=== PATIENT | male | born 1955 | race Caucasian/White ===

== ENCOUNTER 2019-02-25 09:23 | Inpatient (IN) | payer MEDICARE, OTHER ==
[~2019-02-25] VITALS: Ht 180.3 cm; Wt 120.1 kg
[~2019-02-25 09:23] MED LIST: ACETAMINOPHEN650 M5 PO; ADULT LOW DOSE81 MG PO; ALBUTEROL2.5 MG/31 INH; CEFDINIR300 MG PO; LIPITOR20 MG PO; LISINOPRIL10 MG PO; LORTAB 5 MG/5001 TA1 PO; METFORMIN HCL500 MG PO; MULTIVITAMINS PO; NEBULIZER MISCELL; PIOGLITAZONE15 MG PO; PREDNISONE 10 M10 MG PO; TOPROL XL50 MG PO
[2019-02-25 09:27] VITALS: BP 141/89
[2019-02-25] MEDS ORDERED: ELIQUIS5 MG PO (09:36)
[2019-02-25] MEDS ORDERED: CHLORTHALIDONE25 MG PO (09:39)
[2019-02-25] MEDS ORDERED: FISH OIL 1,001000 M2 PO (09:39)
[2019-02-25] MEDS ORDERED: UNICOMPLEX M TA1 TA1 PO (09:39)
[2019-02-25] MEDS ORDERED: VITAMIN D3400 UNIT PO (09:40)
[2019-02-25 09:54] LABS: ABSOLUTE EOSINOPHILS 0.2 thou/uL (0.0-0.7); ABSOLUTE LYMPHOCYTES 1.6 thou/uL (0.8-5.3); ABSOLUTE MONOCYTES 1.2 thou/uL (0.0-1.2); ABSOLUTE NEUTROPHILS 7.5 thou/uL (1.6-8.1); BASOPHILS 0.2 %; EOSINOPHILS 1.6 %; HEMATOCRIT 39.2 % (42.0-52.0); HEMOGLOBIN 13.5 gm/dL (14.0-18.0); LYMPHOCYTES 15.5 %; MCH 31.2 pg (26.0-34.0); MCHC 34.3 g/dL (28.0-37.0); MCV 90.8 fL (80.0-100.0); MONOCYTES 11.5 %; MPV 7.3 fl. (7.2-11.1); NUCLEATED RBCS 0 /100WBC; PLATELET COUNT* 326 thou/uL (150-400); POLYS 71.2 %; RBC 4.32 mil/uL (4.50-6.00); RDW-CV 15.5 % (10.5-14.5); WBC 10.6 thou/uL (4.0-11.0)
[2019-02-25 10:05] LABS: INR 1.1
[2019-02-25 10:09] LABS: ANION GAP 14 mmol/L (7-16); BUN 19 mg/dL (7-18); CALCIUM 8.5 mg/dL (8.5-10.1); CHLORIDE 99 mmol/L (98-107); CO2 25 mmol/L (21-32); CREATININE 1.3 mg/dL (0.6-1.3); GLUCOSE 138 mg/dL (70-99); POTASSIUM 3.4 mmol/L (3.5-5.1); SODIUM 138 mmol/L (136-145); TROPONIN-I LEVEL <0.06 ng/mL (<0.06)
[2019-02-25 10:15] LABS: ALBUMIN 3.8 g/dL (3.4-5.0); ALKALINE PHOSPHATASE 101 U/L (46-116); LIPASE 1390 U/L (73-393); NT-PRO BRAIN NAT PEPTIDE 837 pg/mL (<300); SGOT 22 U/L (15-37); SGPT 28 U/L (30-65); TOTAL BILIRUBIN 1.5 mg/dL (<0.1-1.0); TOTAL PROTEIN 6.7 g/dL (6.4-8.2)
[2019-02-25 14:03] LABS: AMP/METHAMP Negative (Negative); BARBITURATES Negative (Negative); BENZODIAZEPINES Negative (Negative); COCAINE Negative (Negative); METHADONE Negative (Negative); OPIATES Negative (Negative); PCP Negative (Negative); THC Negative (Negative)
[2019-02-25 16:31] VITALS: BP 154/89
--- NOTE | 2019-02-25 18:56 | NUR ---
VSS, ASSUMED CARE IN THE AM, ASSESSMENT PERFOMRED AND CHARTED, FALL PRECAUTIONS IN PLACE AND CALL LIGHT IN REACH, PT IS A&O4 UP WITH STAND BY ON 3L NC AND IS TRACING SR ON THE MONITOR PT DENIES ANY PAIN HIS GOAL IS TO IMPROVE BREATHING AND SIT UP IN CHAIR, PT HAS IMPROVED BREATHING NOW ON 2L NC AND IS UP IN CHAIR, HOURLY ROUNDS COMPLETED AND WILL FOLLOW WITH PLAN OF CARE.
[2019-02-25 20:00] VITALS: BP 143/89
--- NOTE | 2019-02-25 20:00 | NUR ---
RECEIVED REPORT AND ASSUMED CARE OF PT, ASSESSMENT COMPLETED. PT SITTING UP IN CHAIR. STATES HE IS BREATHING BETTER NOW. O2 ON AT 2L/NC. VOIDING PER URINAL. TELEMETRY ON SHOWING SR. WILL CONT TO MONITOR AND ASSIST NEEDED.
[2019-02-26] VITALS: BP 158/83
[2019-02-26 04:00] VITALS: BP 131/75
[2019-02-26 05:11] LABS: HEMATOCRIT 38.4 % (42.0-52.0); HEMOGLOBIN 13.2 gm/dL (14.0-18.0); MCH 30.9 pg (26.0-34.0); MCHC 34.4 g/dL (28.0-37.0); MCV 89.9 fL (80.0-100.0); MPV 7.7 fl. (7.2-11.1); NUCLEATED RBCS 0 /100WBC; PLATELET COUNT* 314 thou/uL (150-400); RBC 4.27 mil/uL (4.50-6.00); RDW-CV 15.6 % (10.5-14.5); WBC 9.9 thou/uL (4.0-11.0)
[2019-02-26 05:13] LABS: CALCIUM 8.5 mg/dL (8.5-10.1); CREATININE 1.2 mg/dL (0.6-1.3); POTASSIUM 3.2 mmol/L (3.5-5.1)
--- NOTE | 2019-02-26 06:28 | NUR ---
SLEPT WELL TONIGHT. NO SOB NOTED, O2 ON AT 2L/NC. UNEVENTFUL NIGHT. TELEMETRY CONT TO SHOW SR. HS GOALS OF REST AND SAFETY ACHIEVED. HOURLY ROUNDING OBSERVED.
[2019-02-26 07:02] LABS: ABSOLUTE LYMPHOCYTES 1.1 thou/uL (0.8-5.3); ABSOLUTE MONOCYTES 0.1 thou/uL (0.0-1.2); ABSOLUTE NEUTROPHILS 8.7 thou/uL (1.6-8.1); ATYPICAL LYMPHS 6 %; PLATELET ESTIMATE ADEQUATE
--- NOTE | 2019-02-26 07:15 | NUR ---
assumed care of pt assessed and documented. pt is on cardiac moniter tracing sr hr 79. he is a&o with no c/o pain. vss wnl. pt is afebrile. bed is in low position call light is in reach. wm.
[2019-02-26 08:00] VITALS: BP 125/67
--- NOTE | 2019-02-26 08:30 | NUR ---
SENT YOU CALL TO DR ORTIZ PTS K+ OF 3.2.
--- NOTE | 2019-02-26 10:22 | NUR ---
Pt is A&O. Resides at home alone. Normally active and independent. Pt stated that he was set up with home o2 during previous hospital stay and states that he had stopped requiring it approx 3 weeks ago, but started using it yesterday again when he became SOB. Pt also has a neb through [employer] and a cane. Supportive kids. Goal is home at [place]. No needs anticipate.
[2019-02-26 11:34] VITALS: BP 108/63
--- NOTE | 2019-02-26 11:39 | EKG ---
[place] [address] ELECTROCARDIOGRAM REPORT Name: DESTINEE JI Room: [address] ADM IN M.R.#: [id number] Admission: 02/25/19 Attend Phys: Anthony Crump MD Discharge: Date of : 51 Report #: [id number] THIS REPORT FOR: //name// [facility] ED Test Date: 2019-02-25 Test Time: 09:28:06 Pat Name: DESTINEE JI Department: Room: [facility] Gender: Laundry Agent: Katarina VENEGAS : 1955 Requested By: Adis Perkins Order Number: [id number] MD: Meño San Measurements Intervals [place] Rate: 87 P: 24 MN: 161 QRS: -25 QRSD: 101 T: 62 QT: 395 QTc: 476 Interpretive Statements Sinus rhythm Ventricular premature complex Left ventricular hypertrophy Borderline prolonged QT interval Compared to ECG 01/19/2019 10:38:42 Ventricular premature complex(es) now present Left ventricular hypertrophy now present Sinus tachycardia no longer present Electronically Signed On 02-26-2019 11:39:10 CDT by Meño San [email or web address] <ELECTRONICALLY SIGNED> By: Meño San MD, [facility] 02/26/19 1139 0928 Meño San MD, [facility] /EPI
[2019-02-26 15:50] VITALS: BP 122/70
--- NOTE | 2019-02-26 17:25 | NUR ---
PT HAS RESTED IN HIS BEDSIDE CHAIR THIS SHIFT. K+ PROTOCOL REC. 2ND DOSE GIVEN AND REDRAW PENDING. MG+ WAS GIVEN 1ST DOSE. EDUCATION GIVEN ON DEMAND. HOURLY ROUNDING CONTINUES.
[2019-02-26 20:00] VITALS: BP 126/74
[2019-02-27] VITALS: BP 125/71
[2019-02-27 04:31] VITALS: BP 115/65
--- NOTE | 2019-02-27 04:48 | NUR ---
ASSUMED CARE OF PT AT 1900 PT ALERT AND ORIENTED X4 VS AND ASSESSMENT STABLE. PT DENIED ANY COMPLAINTS AND SLEPT THROUGH THE NIGHT. WILL CONTINUE PLAN OF CARE.
--- NOTE | 2019-02-27 08:00 | NUR ---
ASSUMED PT CARE AT 0700, PT UP IN CHAIR, UP AD ANKUSH WITH CANE, A&O X4, VSS, REMAINS ON 3LPM VIA NC, CADWORX PIPING DESIGNER TRACING SINUS RHYTHM. PT TO CONT MEDS AND HAVE REPEAT XRAY THIS SHIFT. WILL CONT POC.
[2019-02-27 12:00] VITALS: BP 121/87
[2019-02-27 15:02] LABS: CALCIUM 8.3 mg/dL (8.5-10.1); CREATININE 1.7 mg/dL (0.6-1.3); POTASSIUM 3.9 mmol/L (3.5-5.1)
[2019-02-27 15:47] VITALS: BP 119/70
[2019-02-27] MEDS ORDERED: VENTOLIN HFA INH8 GM INH (16:30)
[2019-02-27] MEDS ORDERED: SYMBICORT160 MCG/4. INH (16:31)
[2019-02-27] MEDS ORDERED: PREDNISONE 20 M20 MG PO (16:33)
--- NOTE | 2019-02-27 17:39 | NUR ---
PT UP IN CHAIR FOR ALL MEALS, UP AD ANKUSH WITH CANE. LS CLEAR TO DIMINISHED, REMAINS ON 3LPM O2. EDUCATED PT ON NOT DISCHARGING HOME THIS DAY BUT TOMORROW PER DR BREEN D/T CONTINUING TO REQUIRE LASIX. HOURLY ROUNDING COMPLETED, VSS.
[2019-02-28 00:12] VITALS: BP 127/82
[2019-02-28 03:54] VITALS: BP 145/91
--- NOTE | 2019-02-28 10:55 | CON ---
[address] [address] CONSULTATION Name: DESTINEE JI Room: [address] IN M.R.#: [id number] Admission: 02/25/19 Attend Phys: Anthony Crump MD Discharge: Date of : 51 Report #: [id number] THIS REPORT FOR: //name// CC: Anthony Blank [facility] DATE OF SERVICE: 02/26/2019 NEW PATIENT EVALUATION REASON FOR EVALUATION: Acute hypoxemic respiratory failure. HISTORY OF PRESENT ILLNESS: The patient is a 64-year-old gentleman with acute hypoxic respiratory failure. He was recently hospitalized in January with severe pneumonia. At this time, he has checked his oxygen and was complaining of progressive shortness of breath and cough, dry over the last 2 days. He checked his oxygen. It was low in the low 80s. He came to the Emergency Room. He has been complaining of associated lower extremity swelling. Denies any fever, chills, mucus production or hemoptysis. He quit smoking. He used to smoke 2 packs per day for 30 years. No previous history of asthma or seasonal allergies. He unfortunately continues to drinks several beers. PAST MEDICAL HISTORY: Per the patient, he has coronary artery disease, had stents before; congestive heart failure. COPD per history; however, he quit smoking. He used to smoke 2 packs per day for 30 years. It sounds more like asthma; it is more seasonal. HOME MEDICATIONS: Reviewed. PAST SURGICAL HISTORY: Coronary artery disease with stents in 2019, knee surgery, left carpal tunnel and a history of AFib. FAMILY HISTORY: Noncontributory. SOCIAL HISTORY: He quit smoking. He used to smoke 2 packs per day for 30 years. He continues to drink plenty of beers a week. REVIEW OF SYSTEMS: Twelve-point review of systems as above. Associated lower extremity swelling and cough. PHYSICAL EXAMINATION: VITAL SIGNS: On examination, the patient is pleasant, not in any distress. HEENT: Normocephalic, atraumatic. Pupils are equal, reactive. Nose clear. Mucous membranes are clear. CHEST: He has basilar crackles. No wheezing. CARDIOVASCULAR: [place] [address] CONSULTATION Name: DESTINEE JI Room: [address]#: [id number] Admission: 02/25/19 Attend Phys: Anthony Crump MD Discharge: Date of : 51 Report #: [id number] ABDOMEN: Soft, nontender. EXTREMITIES: He has +3 edema. LABORATORY DATA: Chest x-ray, which I have reviewed, showed increased density at the bases, with fluid in the fissure, suggestive of edema; interstitial pneumonitis less likely. White blood cell count normal, platelets normal. Creatinine 1.3. His proBNP was 837. ASSESSMENT AND PLAN: 1. Acute hypoxemic respiratory failure, recent admission. At this time, suspect congestive heart failure. He has volume overload. He has lower extremity swelling. Recommend Cardiology evaluation, especially with the previous cardiac history. Recommend diuresis. Recommend followup chest x-ray. 2. Acute hypoxemic respiratory failure, possible chronic obstructive pulmonary disease, on nebulizer. Other differential diagnoses including aspiration pneumonitis, related to alcohol abuse. I agree with antibiotics. We will add Flagyl. We recommend to add followup chest x-ray as well with diuresis. This was discussed with the patient and his nurse. <ELECTRONICALLY SIGNED> By: Ron Ruvalcaba MD 02/28/[address] Ruvalcaba MD /nt
[2019-02-28 11:50] VITALS: BP 104/87
[2019-02-28 13:47] LABS: CALCIUM 8.4 mg/dL (8.5-10.1); CREATININE 1.6 mg/dL (0.6-1.3); MAGNESIUM 2.1 mg/dL (1.8-2.4); POTASSIUM 4.7 mmol/L (3.5-5.1)
[2019-02-28 16:02] VITALS: BP 104/77
--- NOTE | 2019-02-28 17:28 | NUR ---
A&O X4, UP AD ANKUSH WITH A CANE, PT WAS SINUS RHYTHM ON INSTITUTION DIRECTOR, AT APPROX 0930 PT WENT INTO EXTREME SINUS TACH WITH HR INTO 170'S. DR BREEN NOTIFIED, ORDERED EKG AND IVP METOPROLOL WELL CARDIOLOGY CONSULT. DR KURTZ ASSESSED PT AND GAVE NEW ORDERS FOR SOTALOL BID AND PRN IVP METOROLOL. HR HAS DECREASED BUT PT DID CONVERT TO AFIB, PT HAS BEED ASYMPTOMATIC THROUGHOUT. REMAINS ON O2 AT 3LPM VIA NC, LS CLEAR TO DIMINISHED, HOURLY ROUNDING COMPLETED.
[2019-02-28 20:00] VITALS: BP 124/77
[2019-03-01] VITALS (11 sets, daily range): BP systolic 101–138; BP diastolic 64–87
--- NOTE | 2019-03-01 05:10 | NUR ---
ASSUMED PATIENT CARE AT 1900. PATIENT SITTING IN CHAIR AT BEDSIDE. ALERT AND ORIENTED TIMES FOUR. NO COMPLAINTS OF PAIN OR DISCOMFORT NOTED. RN ASESSMENT AND HOURLY ROUNDING COMPLETED DOCUMENTED. WILL CONTINUE TO MONITOR
--- NOTE | 2019-03-01 08:34 | NUR ---
ASSUMED CARE OF PT AT 0730. PT SITTING UP IN THE CHAIR WAITING FOR BREAKFAST. PT A&0X4, DENIES ANY PAIN OR SHORTNESS OF BREATH AT THIS TIME. PT ON SOTALOL LOADING AT THIS TIME. TRACING SR ON THE FORMING YARDAGE CONTROL OPERATOR. PT ON 2L NC SAT 96%. PT UP AD ANKUSH IN ROOM WITH CANE. PT GOAL FOR TODAY IS TO MONITOR EKG WITH SOTALOL LOADING AND INCREASE ACTIVITY. AM ASSESSMENT CHARTED. MEDICATIONS PER JAN. PT REPOSITIONS SELF. HOURLY ROUNDING OBSERVED. BED IN LOW POSITION. CALL LIGHT WITHIN REACH. WILL CONTINUE PLAN OF CARE.
--- NOTE | 2019-03-01 08:58 | CON ---
[address] [address] CONSULTATION Name: DESTINEE JI Room: [address] ADM IN .R.#: [id number] Admission: 02/25/19 Attend Phys: Anthony Crump MD Discharge: Date of : 51 Report #: [id number] THIS REPORT FOR: //name// CC: Anthony Leroy DO INDICATION: Diastolic heart failure and recurrent atrial fibrillation. HISTORY OF PRESENT ILLNESS: The patient is a very pleasant 64-year-old gentleman with history of coronary artery disease with percutaneous coronary intervention remotely. He has normal LV systolic function. He has diastolic dysfunction. He has been admitted to the hospital with increasing shortness of breath consistent with acute diastolic heart failure. While in the hospital, he has had recurrent atrial fibrillation. He is anticoagulated with Eliquis. He does not have palpitations. He has a rapid ventricular response rate with his atrial fibrillation. He denies any chest pain at this time. Shortness of breath improved with diuresis. The patient has a remote smoking history, but quit 10 years ago. He has hypertension. He has a family history of coronary artery disease. He has type 2 diabetes mellitus. PAST MEDICAL HISTORY: 1. Coronary artery disease. 2. Paroxysmal atrial fibrillation. 3. Hypertension. 4. Type 2 diabetes mellitus. 5. Hyperlipidemia. PAST SURGICAL HISTORY: 1. Tonsillectomy. 2. Head injury in 1960. 3. Left knee surgery in 1978. 4. Percutaneous coronary intervention with 2 stents placed in 2008. 5. Left carpal tunnel release. FAMILY HISTORY: Positive for coronary artery disease. SOCIAL HISTORY: The patient quit smoking 10 years ago. He does not drink alcohol. REVIEW OF SYSTEMS: A 14-point review of systems was positive for cough productive of clear sputum, recent pneumonia, dyspnea on exertion, orthopnea, paroxysmal nocturnal dyspnea, type 2 diabetes mellitus [place] [id number] CONSULTATION Name: DESTINEE JI Room: [address]#: [id number] Admission: 02/25/19 Attend Phys: Anthony Crump MD Discharge: Date of : 51 Report #: [id number] Otherwise, 14-point review of systems was unremarkable. PHYSICAL EXAMINATION: VITAL SIGNS: Blood pressure 128/73, pulse is in the 130s and irregular. GENERAL: A pleasant gentleman who is in no distress. Mood and affect appropriate. HEENT: Extraocular muscles intact. Mucous membranes are moist. NECK: Shows no jugular venous distention. CHEST: Reveals clear lung campos. CARDIAC: Reveals an irregularly irregular rhythm that is tachycardic. I do not appreciate obvious murmur. ABDOMEN: Reveals normal bowel sounds. The abdomen is soft, nontender. EXTREMITIES: Shows trace tibial edema. Peripheral pulses 2+ and palpable. SKIN: Dry. IMPRESSION AND RECOMMENDATIONS: 1. Recurrent paroxysmal atrial fibrillation. Continue Eliquis b.i.d. We will start sotalol 80 mg twice daily. Echocardiogram in a.m. Plan loading sotalol here in the hospital. Can use IV push metoprolol for rate control in the interim. 2. Coronary artery disease, presently stable. Continue daily aspirin. 3. Hyperlipidemia. Continue atorvastatin at current dose. 4. Hypertension. Blood pressure adequately controlled on current cardiac regimen. 5. Pqdsc-in-[id number] diastolic heart failure, improving with IV Lasix. Ultimately, we will require adequate blood pressure and rhythm control. <ELECTRONICALLY SIGNED> By: Sree Guillory MD, FACC 03/01/19 0858 1135 0143Sree Guillory MD, FACC /nt
--- NOTE | 2019-03-01 13:07 | EKG ---
[place] [address] ELECTROCARDIOGRAM REPORT Name: DESTINEE JI Room: [address] ADM IN M.R.#: [id number] Admission: 02/25/19 Attend Phys: Anthony Crump MD Discharge: Date of : 51 Report #: [id number] THIS REPORT FOR: //name// [facility] Test Date: 2019-02-28 Test Time: 10:26:10 Pat Name: DESTINEE MONTESINOSOWELL Department: Room: [address] Gender: M Sales Order Coordinator: CAMI : 1955 Requested By: Sree Guillory Order Number: [id number] Reading MD: Destinee Portillo Measurements Intervals [place] Rate: 149 P: SC: QRS: -26 QRSD: 93 T: 114 QT: 282 QTc: 444 Interpretive Statements Atrial fibrillation LVH with secondary repolarization abnormality Compared to ECG 02/25/2019 09:28:06 Early repolarization now present Sinus rhythm no longer present Ventricular premature complex(es) no longer present Electronically Signed On 03-01-2019 13:07:06 CDT by Destinee Portillo [email or web address] <ELECTRONICALLY SIGNED> By: Destinee Portillo MD, FACC 03/01/19 1307 1026 1026 Destinee Portillo MD, [facility] /EPI
--- NOTE | 2019-03-01 13:13 | EKG ---
[place] [address] ELECTROCARDIOGRAM REPORT Name: DESTINEE JI Room: [address] ADM IN M.R.#: [id number] Admission: 02/25/19 Attend Phys: Anthony Crump MD Discharge: Date of : 51 Report #: [id number] THIS REPORT FOR: //name// [facility] Test Date: 2019-03-01 Test Time: 08:34:41 Pat Name: DESTINEE MONTESINOSOWELL Department: Room: [address] Gender: M Lifeguard: : 1955 Requested By: Sree Guillory Order Number: [id number] Reading MD: Destinee Portillo Measurements Intervals [place] Rate: 90 P: [place]: QRS: -25 QRSD: 103 T: 59 QT: 395 QTc: 484 Interpretive Statements Atrial fibrillation LVH with secondary repolarization abnormality Borderline prolonged QT interval Electronically Signed On 03-01-2019 13:12:53 CDT by Destinee Portillo [email or web address] <ELECTRONICALLY SIGNED> By: Destinee Portillo MD, [facility] 03/01/19 1312 0834 08 Destinee Portillo MD, FACC /EPI
--- NOTE | 2019-03-01 16:47 | NUR ---
NO ACUTE CHANGES THROUGHOUT SHIFT. REFER TO CHARTING. PT CONTINUES TO TRACE SR/SB ON THE CORRECTIONAL FACILITY NURSE. ON 2L NC SAT UPPER 90'S. PT DENIES ANY PAIN OR SHORTNESS OF BREATH THIS AFTERNOON. PT PROGRESSING TOWARDS GOALS. SOTALOL LOADING IN PLACE. PROBABLE DISCHARGE TOMORROW 03/02. MEDICATIONS PER JAN. PT REPOSITIONS SELF. HOURLY ROUNDING OBSERVED. BED IN LOW POSITION. CALL LIGHT WITHIN REACH. WILL CONTINUE PLAN OF CARE.
--- NOTE | 2019-03-01 22:15 | NUR ---
INITAL ASSESMENT COMPLETED AT 2100. PT SITTING IN CHAIR AT THAT TIME WATCHING TV. PT'S HEART RATE IN 60'S, SINUS RHYTHM. PT WEARING O2 AT 2 LITERS. NO SHORTNESS OF AIR, CHEST PAIN OR PRESSURE. PT GIVEN HS MEDS PPER EMAR AND INSULIN PER SLIDING SCALE. CALL LIGHT IN REACH. PT USIG APPROPRIATELY.
[2019-03-02 00:13] VITALS: BP 133/77
[2019-03-02 04:07] VITALS: BP 136/75
--- NOTE | 2019-03-02 05:53 | NUR ---
PT PROGRESSING TOWARD GOALS. PT REMAINED IN SINUS RHYTHM, SINUS JANESSA THROUGHOUT SHIFT. HEART RATE 50'S - 60'S. BLOOD PRESSURE WITHIN NORMAL LIMITS. O2 INCREASED TO 4 LITERS AT 0400. O2 SAT WAS 84% ON 2 LITERS. THEN > 94% ON 4 LITERS. CALL LIGHT IN REACH. PT USING APPROPRIATELY. WILL CONTINUE PLAN OF CARE.
[2019-03-02 07:35] VITALS: BP 119/66
--- NOTE | 2019-03-02 08:55 | NUR ---
ASSUMED CARE OF PT AT 0730. PT SITTING UP IN THE CHAIR WAITING FOR BREAKFAST. PT A&0X4, DENIES ANY PAIN AT THIS TIME. PT ON 4L NC SAT 86%- 02 INCREASED TO 5L NC SAT 92%. PT DENIES ANY SHORTNESS OF BREATH AT REST. PT TRACING SR ON THE CAREER AND TECHNOLOGY EDUCATION TEACHER. RATE IN THE 60'S. SOTALOL LOADING IN PROGRESS. PT UP AD ANKUSH IN ROOM. PT GOAL FOR TODAY IS TO TITRATE OXYGEN, SOTALOL LOADING AND DISCHARGE PLANNING TO HOME. AM ASSESSMENT CHARTED. MEDICATIONS PER JAN. PT REPOSITIONS SELF. HOURLY ROUNDING OBSERVED. BED IN LOW POSITION. CALL LIGHT WITHIN REACH. WILL CONTINUE PLAN OF CARE.
[2019-03-02] MEDS ORDERED: SORINE 80 MG TA80 M1 PO (09:13)
[2019-03-02 12:23] VITALS: BP 116/64
--- NOTE | 2019-03-02 15:37 | NUR ---
PT PROGRESSING TOWARDS GOALS. PT TITRATED TO 2L NC SAT 93%. CONTINUES TO TRACE SB/SR ON THE MAINTENANCE PLUMBER. PT DENIES ANY PAIN OR SHORTNESS OF BREATH THIS AFTERNOON. PT UP AD ANKUSH IN ROOM. PT HAD CXR TODAY. REFER TO RESULTS. PROBABLE DISCHARGE HOME TOMORROW 03/03. MEDICATIONS PER JAN. PT REPOSITIONS SELF. HOURLY ROUNDING OBSERVED. BED IN LOW POSITION. CALL LIGHT WITHIN REACH. WILL CONTINUE PLAN OF CARE.
[2019-03-02 16:18] VITALS: BP 137/76
--- NOTE | 2019-03-02 17:19 | NUR ---
RECEIVED REPORT AT 1600 AND ASSUMED PT. CARE. PREVIOUS ASSESSMENT REVIEWED WITH NO NOTED CHANGE IN PT. STATUS. PT. ON 2LNC @ 97% , DECREASED TO 1L AT THIS TIME PER PT. HOME DOSE. UPON REASSESSMENT PT. REMAINS AT 94% ON THE 1L. NO COMPLAINTS AT THIS TIME, WILL CONTINUE TO MONITOR.
[2019-03-02 19:10] VITALS: BP 130/75
--- NOTE | 2019-03-02 23:20 | NUR ---
INITIAL ASSESSMENT COMPLETED CHARTED. VSS. TRACING SR WITH PAC'S ON MONITOR. PT DENIES PAIN, CP, N/V/D. PT UP ADLIB, STEADY GAIT. HOURLY ROUNDING IN PLACE, CLWR.
[2019-03-03 00:12] VITALS: BP 130/75
[2019-03-03 04:06] VITALS: BP 126/71
[2019-03-03 08:26] VITALS: BP 142/91
[2019-03-03] MEDS ORDERED: POTASSIUM20 PO (10:14)
[2019-03-03] MEDS ORDERED: LASIX 40 MG TAB40 M2 PO (10:15)
--- NOTE | 2019-03-03 11:00 | NUR ---
REPORT GIVEN TO STEPHANIE KESSLER AT 1100.
[2019-03-03 12:00] VITALS: BP 134/87
--- NOTE | 2019-03-03 12:54 | NUR ---
ASSUMED CARE OF PT AT APPROX 1030. PT ALERT, ORIENTED AND ALL VSS. I AGREE WITH PRIOR NURSE ASSESSMENT. LOOKING FORWARD TO DC TODAY. EDUCATED ON SAFETY AND PLAN OF CARE. WILL CONT TO MONITOR
[2019-03-03] MEDS ORDERED: PREDNISONE 20 M20 MG PO (13:05)
[2019-03-03] MEDS ORDERED: CEFDINIR300 MG PO (13:05)
[2019-03-03] MEDS ORDERED: IPRAT-ALBUT 0.5-3 ML INH (13:05)
[2019-03-03] MEDS ORDERED: GLUCOTROL5 MG PO (13:05)
--- NOTE | 2019-03-03 13:31 | EKG ---
[place] [address] ELECTROCARDIOGRAM REPORT Name: DESTINEE JI Room: [address] ADM IN M.R.#: [id number] Admission: 02/25/19 Attend Phys: Anthony Crump MD Discharge: Date of : 51 Report #: [id number] THIS REPORT FOR: //name// [facility] Test Date: 2019-03-03 Test Time: 10:11:08 Pat Name: DESTINEE JI Department: Room: [address] Gender: M Stencil Machine Operator: : 1955 Requested By: Sree Guillory Order Number: [id number] Reading MD: Destinee Portillo Measurements Intervals [place] Rate: 68 P: 23 PA: 156 QRS: -23 QRSD: 101 T: 24 QT: 468 QTc: 498 Interpretive Statements Sinus rhythm Left ventricular hypertrophy Borderline prolonged QT interval Compared to ECG 03/01/2019 08:34:41 Atrial fibrillation no longer present Electronically Signed On 03-03-2019 13:30:58 CDT by Destinee Portillo [email or web address] <ELECTRONICALLY SIGNED> By: Destinee Portillo MD, [facility] 03/03/19 1330 1011 1011 Destinee Portillo MD, [facility] /EPI
== END 2019-03-03 14:35 | disposition home or self-care (01) | DRG 177 ==
LOC: M.ERS 09:23 → M.TBA-ER 12:03 → M.2W 12:03
PROVIDERS: Emergency Medicine; Internal Medicine; ADMIT Internal Medicine
DX: J69.0 Pneumonitis due to inhalation of food and vomit (principal); I50.33 Acute on chronic diastolic (congestive) heart failure; J96.21 Acute and chronic respiratory failure with hypoxia; I25.10 Atherosclerotic heart disease of native coronary artery without angina pectoris; I10 Essential (primary) hypertension; E78.00 Pure hypercholesterolemia, unspecified; E11.9 Type 2 diabetes mellitus without complications; I48.0 Paroxysmal atrial fibrillation; E78.5 Hyperlipidemia, unspecified; F10.20 Alcohol dependence, uncomplicated; Y90.9 Presence of alcohol in blood, level not specified; G47.33 Obstructive sleep apnea (adult) (pediatric); J44.9 Chronic obstructive pulmonary disease, unspecified; Z87.891 Personal history of nicotine dependence; Z79.899 Other long term (current) drug therapy; Z79.84 Long term (current) use of oral hypoglycemic drugs; Z79.82 Long term (current) use of aspirin; I25.2 Old myocardial infarction; Z95.5 Presence of coronary angioplasty implant and graft; Z79.01 Long term (current) use of anticoagulants; Z82.49 Family history of ischemic heart disease and other diseases of the circulatory system

== ENCOUNTER 2019-08-25 06:54 | Emergency (ER) | payer MEDICARE, OTHER ==
[~2019-08-25] VITALS: Ht 180.3 cm; Wt 113.4 kg
[~2019-08-25 06:54] MED LIST changes: +CHLORTHALIDONE25 MG PO; +ELIQUIS5 MG PO; +FISH OIL 1,001000 M2 PO; +GLUCOTROL5 MG PO; +IPRAT-ALBUT 0.5-3 ML INH; +LASIX 40 MG TAB40 M2 PO; +POTASSIUM20 PO; +PREDNISONE 20 M20 MG PO; +SORINE 80 MG TA80 M1 PO; +SYMBICORT160 MCG/4. INH; +UNICOMPLEX M TA1 TA1 PO; +VENTOLIN HFA INH8 GM INH; +VITAMIN D3400 UNIT PO
[2019-08-25] MEDS ORDERED: PLAVIX 75 MG TA75 MG PO (07:06)
[2019-08-25] MEDS ORDERED: SORINE 80 MG TA80 MG PO (07:08)
[2019-08-25] MEDS ORDERED: NORCO 5-325 TA1 EAC1 PO (08:15)
[2019-08-25] MEDS ORDERED: PREDNISONE 20 M20 M1 PO ×2 (08:22→08:23)
[2019-08-25 08:37] VITALS: BP 246/123
== END 2019-08-25 08:38 | disposition home or self-care (01) ==
LOC: M.ERS 06:54
DX: S83.8X2A Sprain of other specified parts of left knee, initial encounter (principal); M25.462 Effusion, left knee; I25.10 Atherosclerotic heart disease of native coronary artery without angina pectoris; E78.00 Pure hypercholesterolemia, unspecified; I48.91 Unspecified atrial fibrillation; I10 Essential (primary) hypertension; Z87.891 Personal history of nicotine dependence; X50.1XXA Overexertion from prolonged static or awkward postures, initial encounter; Y93.89 Activity, other specified; Y92.89 Other specified places as the place of occurrence of the external cause; Y99.8 Other external cause status

== ENCOUNTER → 2021-01-18 | Outpatient (CLI) | payer MEDICARE, OTHER ==
[2021-01-18] VITALS (11 sets, daily range): BP systolic 119–149; BP diastolic 66–90
[~2021-01-18] MED LIST changes: +METFORMIN HCL500 M3 PO; +NORCO 5-325 TA1 EAC1 PO; +PLAVIX 75 MG TA75 MG PO; +PREDNISONE 20 M20 M1 PO; +SORINE 80 MG TA80 MG PO; +SOTALOL 120 MG120 M1 PO
[2021-01-18 09:55] LABS: HEMATOCRIT 34.4 % (42.0-52.0); HEMOGLOBIN 13.3 gm/dL (14.0-18.0); MCH 34.8 pg (26.0-34.0); MCHC 38.7 g/dL (28.0-37.0); MCV 89.8 fL (80.0-100.0); MPV 7.9 fl. (7.2-11.1); RBC 3.84 mil/uL (4.50-6.00); RDW-CV 14.8 % (10.5-14.5); WBC 8.5 thou/uL (4.0-11.0)
[2021-01-18 10:06] LABS: CALCIUM 9.1 mg/dL (8.5-10.1); CREATININE 1.2 mg/dL (0.6-1.3)
[2021-01-18 10:10] LABS: POTASSIUM 4.4 mmol/L (3.5-5.1)
[2021-01-18 10:11] LABS: ALBUMIN 3.7 g/dL (3.4-5.0); TOTAL BILIRUBIN 1.1 mg/dL (<0.1-1.0); TOTAL PROTEIN 6.6 g/dL (6.4-8.2)
--- NOTE | 2021-01-18 15:11 | EKG ---
[place] [address] ELECTROCARDIOGRAM REPORT Name: DESTINEE JI Room: [facility]#: [id number] Admission: 01/18/21 Attend Phys: Sree Guillory, Discharge: Date of : 51 Date of Service: 01/18/21 1017 Report #: [id number] THIS REPORT FOR: //name// [facility] Test Date: 2021-01-18 Test Time: 10:17:18 Pat Name: DESTINEE JI Department: Room: Gender: Shear Helper: : 1955 Requested By: Sree Guillory Order Number: [id number] Reading MD: Sree Guillory Measurements Intervals [place] Rate: 66 P: [place]: QRS: -30 QRSD: 106 T: 71 QT: 455 QTc: 477 Interpretive Statements Sinus rhythm with premature atrial and premature ventricular contractions Low voltage, precordial leads Left axis deviation LVH with secondary repolarization abnormality Compared to ECG 03/03/2019 10:11:08 Premature atrial and ventricular contractions seen. Electronically Signed On 01-18-2021 15:11:51 ASSISTANT DIRECTOR OF PLANT OPERATIONS by Sree Guillory [email or web address] <ELECTRONICALLY SIGNED> By: Sree Guillory MD, FAC 01/18/21 1511 1017 1017 Sree Guillory MD, [facility] /EPI
--- NOTE | 2021-01-23 12:55 | CARD ---
[address] [address] CARDIAC CATH REPORT Name: DESTINEE JI Room: [facility]#: [id number] Admission: 01/18/21 Attend Phys: Sree Guillory MD Discharge: Date of : 51 Report #: [id number] THIS REPORT FOR: cc: Abhya Leroy Lewis DO ~ Sree Guillory MD [facility] DATE OF SERVICE: 01/18/2021 CARDIAC PROCEDURE PROCEDURE: DC cardioversion. INDICATION: Persistent atrial fibrillation. PROCEDURE DESCRIPTION: After informed consent was obtained, the patient was brought to the cardiac holding area. The patient was given 4 mg of Versed and 75 mcg of fentanyl for conscious sedation. Once the patient was adequately sedated, he was cardioverted from atrial fibrillation to normal sinus rhythm with a single biphasic shock of 300 joules. The patient tolerated the procedure well without complication. He was discharged uneventfully. <ELECTRONICALLY SIGNED> By: Sree Guillory MD, FACC 01/23/21 1255 1231 [facility]39[facility] Guillory MD, FACC /nt
== END | disposition home or self-care (01) ==
LOC: M.CL 09:21
PROVIDERS: ATTEND Internal Medicine Cardiovascular Disease
DX: I48.19 Other persistent atrial fibrillation (principal); I50.9 Heart failure, unspecified; J44.9 Chronic obstructive pulmonary disease, unspecified; Z98.890 Other specified postprocedural states; Z79.899 Other long term (current) drug therapy; Z79.82 Long term (current) use of aspirin; Z79.01 Long term (current) use of anticoagulants